=== PATIENT | female | born 1950 | race Caucasian/White ===

== ENCOUNTER → 2019-09-03 | Outpatient (CLI) | payer MEDICARE, MEDICAID ==
--- NOTE | 2019-09-03 16:08 | RADIOLOGY REPORT (SQ) ---
EXAM DESCRIPTION: FOOT RIGHT COMPLETE IMAGES COMPLETED DATE/TIME: 09/03/2019 3:47 pm REASON FOR STUDY: UNSP FRACTURE OF RIGHT TALUS, INIT FOR CLOS FX S92.101A UNSP FRACTURE OF RIGHT TA DANGELO, INIT FOR CLOS FX COMPARISON: None. NUMBER OF VIEWS: Three views. TECHNIQUE: AP, lateral and oblique radiographic images acquired of the right foot. LIMITATIONS: None. FINDINGS: MINERALIZATION: Decreased. BONES: No definite fracture. Scattered degenerative changes with osteophytes and subchondral scleros is at the interphalangeal joints and dorsal midfoot. Small ossific sliver superior to the talus on t he lateral projection. Additional calcific density at the talonavicular joint, likely osteophyte or heterotopic ossification. Plantar and superior calcaneal enthesophytes. JOINTS: No effusions. SOFT TISSUES: No soft tissue swelling. No foreign body. OTHER: No other significant finding. IMPRESSION: 1. Ossific sliver superior to the talus which may represent osteophyte or capsular avul henrique fracture. 2. Degenerative change without other evidence of acute bony abnormality. TECHNICAL DOCUMENTATION: JOB ID: [id number] [employer]- All Rights Reserved Reading location - IP/workstation name: [email or web address]
== END ==
LOC: OD 15:31
PROVIDERS: ATTEND Nurse Practitioner Primary Care
DX: S92.101A Unspecified fracture of right talus, initial encounter for closed fracture (principal); X58.XXXA Exposure to other specified factors, initial encounter